=== PATIENT | female | born 1980 | race Caucasian/White ===

== ENCOUNTER 2016-06-10 17:48 | Emergency (ER) | payer BC ==
[~2016-06-10] VITALS: Ht 170.2 cm; Wt 82.0 kg
[~2016-06-10 17:48] MED LIST: MACROBID100 MG PO; REGLAN5 MG PO; ZOFRAN4 MG PO
[2016-06-10 18:28] LABS: HEMATOCRIT 42.6 % (36.0-46.0); MCH 38.1 PG (29.0-34.0); MCHC 36.4 G/DL (30.0-36.0); MCV 104.7 FL (83-99); MEAN PLAT.VOLUME 10.2 uM^3 (9.5-12.4); PLATELET COUNT 190 K/uL (156-360); RBC DIS.WIDTH-SD 53.7 % (39-53); RED BLOOD COUNT 4.07 M/uL (3.80-5.20); WHITE BLOOD COUNT 7.9 K/uL (4.1-10.2)
[2016-06-10 18:35] LABS: ADD MIUA? YES; BILIRUBIN NEGATIVE; BLOOD NEGATIVE; COLOR YELLOW ((YELLOW)); GLUCOSE (STRIP) NEGATIVE; KETONES 5; LEUKOCYTES NEGATIVE; NITRITE NEGATIVE; PROTEIN (STRIP) NEGATIVE; SPECIFIC GRAVITY 1.006 (1.000-1.030)
[2016-06-10 18:39] LABS: BACTERIA RARE /HPF; CALCIUM OXALATE CRYSTALS 3+ /HPF; EPITHELIAL CELLS RARE /HPF; MUCUS NONE SEEN /LPF; RED BLOOD CELLS 0-5 /HPF (0-5); UCUL ADDED? NO; WHITE BLOOD CELLS 0-5 /HPF (0-5)
[2016-06-10 18:42] LABS: CHLORIDE 87 mEq/L (99-109); POTASSIUM 2.6 mEq/L (3.7-5.4); SODIUM 136 mEq/L (136-147)
[2016-06-10 18:44] LABS: GLUCOSE 96 mg/dL (70-99)
[2016-06-10 18:45] LABS: ANION GAP 21 MEQ/L (2-14)
[2016-06-10 18:46] LABS: TOTAL BILIRUBIN 3.4 mg/dL (0.0-1.0)
[2016-06-10 18:48] LABS: ALKALINE PHOSPHATASE 87 IU/L (3-129); GFR ESTIMATE (CALCULATED) > 59 mL/min/
[2016-06-10 18:49] LABS: UREA NITROGEN (BUN) 13 mg/dL (9-23)
[2016-06-10 18:57] LABS: QUANTITATIVE HCG < 4.0 MIU/ML
[2016-06-10 20:21] LABS: SERUM ETHYL ALCOHOL < 10 mg/dL
[2016-06-10 20:37] LABS: LIPASE 324 U/L (1.0-51.0)
[2016-06-10] MEDS ORDERED: OXYCONTIN30 MG PO (21:44)
[2016-06-10] MEDS ORDERED: OMEPRAZOLE40 M1 PO (21:44)
[2016-06-10] MEDS ORDERED: OXYCODONE HCL10 MG PO (21:44)
[2016-06-10 23:09] LABS: AMPHETAMINE NEGATIVE (500 ng/mL); BARBITURATES NEGATIVE (200 ng/mL); BENZODIAZEPINES NEGATIVE (150 ng/mL); COCAINE NEGATIVE (150 ng/mL); INTERNAL CONTROLS VALID? YES; METHADONE NEGATIVE (200 ng/mL); METHAMPHETAMINE NEGATIVE (500 ng/mL); OPIATES (MORPHINE) NEGATIVE (100 ng/mL); OXYCODONE PRESUMPTIVE POSITIVE (100 ng/mL); PHENCYCLIDINE NEGATIVE (25 ng/mL); PROPOXYPHENE NEGATIVE (300 ng/mL); THC CANNABINOIDS NEGATIVE (50 ng/mL); TRICYCLIC ANTIDEPRESSANTS NEGATIVE (300 ng/mL)
[2016-06-11] MEDS ORDERED: ZOFRAN ODT4 MG PO (01:42)
[2016-06-11] MEDS ORDERED: MOUTH SORE15 ML MM (02:02)
[2016-06-11 02:27] VITALS: BP 126/79
[2016-06-11 11:37] LABS: HBSG INDEX 0.16
[2016-06-11 11:38] LABS: HPCA INDEX 14.19
[2016-06-11 11:39] LABS: ANTI-HEPATITIS A VIRUS (IGM) Nonreactive; ANTI-HEPATITIS B CORE (IGM) Nonreactive; HAV INDEX 0.07; HBC IgM INDEX 0.13
== END 2016-06-11 02:29 | disposition home or self-care (01) ==
LOC: EME 17:48
DX: E87.6 Hypokalemia (principal); R11.2 Nausea with vomiting, unspecified; F10.10 Alcohol abuse, uncomplicated; R79.89 Other specified abnormal findings of blood chemistry; F43.23 Adjustment disorder with mixed anxiety and depressed mood; K21.9 Gastro-esophageal reflux disease without esophagitis
CPT/HCPCS: 74177; 80053; 80074; 80306 90; 81003; 83690; 84702; 85027; 90839; 93005; 99281; 99285; G0480; J3360; J3480; J7030

== ENCOUNTER 2016-08-28 13:24 | Emergency (ER) | payer BC ==
[~2016-08-28] VITALS: Ht 170.2 cm; Wt 75.0 kg
[~2016-08-28 13:24] MED LIST changes: +MOUTH SORE15 ML MM; +OMEPRAZOLE40 M1 PO; +OXYCODONE HCL10 MG PO; +OXYCONTIN30 MG PO; +ZOFRAN ODT4 MG PO
[2016-08-28] MEDS ORDERED: ONDANSETRON HCL8 MG PO (13:55)
[2016-08-28] MEDS ORDERED: BUSPAR15 MG PO (13:56)
[2016-08-28 14:56] LABS: ADD MIUA? YES; BILIRUBIN NEGATIVE; BLOOD SMALL; GLUCOSE (STRIP) NEGATIVE; KETONES NEGATIVE; LEUKOCYTES LARGE; NITRITE NEGATIVE; PROTEIN (STRIP) 30
[2016-08-28 15:00] LABS: COLOR YELLOW ((YELLOW))
[2016-08-28 15:05] LABS: EOSINOPHIL (%) 0 % (0-5); HEMATOCRIT 44.1 % (36.0-46.0); IMMATURE GRANULOCYTE (%) 0.8 % (0.0-0.7); LYMPHOCYTE COUNT 1.5 K/uL (1.0-2.8); MCH 37.9 PG (29.0-34.0); MCHC 35.6 G/DL (30.0-36.0); MCV 106.5 FL (83-99); MEAN PLAT.VOLUME 9.1 uM^3 (9.5-12.4); MONOCYTE (%) 7.8 % (3-12); MONOCYTE COUNT 0.3 K/uL (0-0.8); NEUTROPHIL (%) 52.5 % (45-76); PLATELET COUNT 183 K/uL (156-360); RBC DIS.WIDTH-CV 14.4 % (11.8-14.6); RBC DIS.WIDTH-SD 56.5 % (39-53); RED BLOOD COUNT 4.14 M/uL (3.80-5.20); WHITE BLOOD COUNT 3.8 K/uL (4.1-10.2)
[2016-08-28 15:18] LABS: AMPHETAMINE NEGATIVE (500 ng/mL); BARBITURATES NEGATIVE (200 ng/mL); BENZODIAZEPINES NEGATIVE (150 ng/mL); COCAINE NEGATIVE (150 ng/mL); INTERNAL CONTROLS VALID? YES; METHADONE NEGATIVE (200 ng/mL); METHAMPHETAMINE NEGATIVE (500 ng/mL); OPIATES (MORPHINE) NEGATIVE (100 ng/mL); OXYCODONE PRESUMPTIVE POSITIVE (100 ng/mL); PHENCYCLIDINE NEGATIVE (25 ng/mL); PROPOXYPHENE NEGATIVE (300 ng/mL); THC CANNABINOIDS NEGATIVE (50 ng/mL); TRICYCLIC ANTIDEPRESSANTS NEGATIVE (300 ng/mL)
[2016-08-28 15:23] LABS: CHLORIDE 96 mEq/L (99-109); POTASSIUM 3.3 mEq/L (3.7-5.4); SODIUM 141 mEq/L (136-147)
[2016-08-28 15:24] LABS: GLUCOSE 104 mg/dL (70-99)
[2016-08-28 15:26] LABS: ANION GAP 17 MEQ/L (2-14)
[2016-08-28 15:28] LABS: GFR ESTIMATE (CALCULATED) > 59 mL/min/; SERUM ETHYL ALCOHOL 344 mg/dL
[2016-08-28 15:29] LABS: UREA NITROGEN (BUN) 6 mg/dL (9-23)
[2016-08-28 15:31] LABS: BACTERIA NONE SEEN /HPF; EPITHELIAL CELLS RARE /HPF; MUCUS 1+ /LPF
[2016-08-28 15:38] LABS: QUANTITATIVE HCG < 4.0 MIU/ML
[2016-08-29] MEDS ORDERED: LIBRIUM25 MG PO (02:04)
[2016-08-29 02:19] VITALS: BP 137/93
== END 2016-08-29 02:31 | disposition home or self-care (01) ==
LOC: EME 13:24
PROVIDERS: Emergency Medicine
DX: F10.129 Alcohol abuse with intoxication, unspecified (principal); Y90.8 Blood alcohol level of 240 mg/100 ml or more; F33.1 Major depressive disorder, recurrent, moderate; Z63.0 Problems in relationship with spouse or partner; K21.9 Gastro-esophageal reflux disease without esophagitis; F41.9 Anxiety disorder, unspecified; M54.9 Dorsalgia, unspecified; Z79.891 Long term (current) use of opiate analgesic
CPT/HCPCS: 80048; 81003; 84702; 85025; 90839; 99281; 99285; G0480; J2405; J3411; J3475

== ENCOUNTER 2017-06-23 09:36 | Emergency (ER) | payer BC ==
[~2017-06-23] VITALS: Ht 170.2 cm; Wt 70.9 kg
[~2017-06-23 09:36] MED LIST changes: +BUSPAR15 MG PO; +LIBRIUM25 MG PO; +ONDANSETRON HCL8 MG PO
[2017-06-23 10:00] LABS: HEMATOCRIT 47.9 % (36.0-46.0); HEMOGLOBIN 17.6 G/DL (11.9-15.5); MCH 33.7 PG (29.0-34.0); MCHC 36.7 G/DL (30.0-36.0); MCV 91.8 FL (83-99); PLATELET COUNT 289 K/uL (156-360); RBC DIS.WIDTH-CV 13.8 % (11.8-14.6); RBC DIS.WIDTH-SD 45.2 % (39-53); RED BLOOD COUNT 5.22 M/uL (3.80-5.20); WHITE BLOOD COUNT 11.2 K/uL (4.1-10.2)
[2017-06-23 10:08] LABS: ALBUMIN 4.8 g/dL (3.2-4.8); CHLORIDE 99 mEq/L (99-109); POTASSIUM 3.5 mEq/L (3.7-5.4); SODIUM 147 mEq/L (136-147)
[2017-06-23 10:11] LABS: GLUCOSE 125 mg/dL (70-99)
[2017-06-23 10:13] LABS: TOTAL BILIRUBIN 1.3 mg/dL (0.0-1.0)
[2017-06-23 10:14] LABS: ALKALINE PHOSPHATASE 120 IU/L (3-129); CREATININE 0.8 mg/dL (0.6-1.3); GFR ESTIMATE (CALCULATED) > 59 mL/min/
[2017-06-23 10:15] LABS: UREA NITROGEN (BUN) 7 mg/dL (9-23)
[2017-06-23 10:16] LABS: AST (GOT) 90 IU/L (2-34)
[2017-06-23 10:17] LABS: ALT (GPT) 95 IU/L (3-49)
[2017-06-23 10:25] LABS: QUANTITATIVE HCG < 4.0 MIU/ML
[2017-06-23 10:54] LABS: APPEARANCE SL.HAZY ((CLEAR)); BILIRUBIN NEGATIVE; BLOOD MODERATE; COLOR YELLOW ((YELLOW)); GLUCOSE (STRIP) NEGATIVE; KETONES 20; LEUKOCYTES NEGATIVE; NITRITE NEGATIVE; PROTEIN (STRIP) 100; SPECIFIC GRAVITY 1.014 (1.000-1.030); UROBILINOGEN 0.2 MG/DL (0.2-1.0)
[2017-06-23 11:02] LABS: BACTERIA RARE /HPF; EPITHELIAL CELLS 1+ /HPF; HYALINE CASTS 0-5 /LPF; MUCUS 2+ /LPF; RED BLOOD CELLS 0-5 /HPF (0-5); UCUL ADDED? NO; WHITE BLOOD CELLS 0-5 /HPF (0-5)
[2017-06-23 11:03] LABS: AMPHETAMINE NEGATIVE (500 ng/mL); BARBITURATES NEGATIVE (200 ng/mL); BENZODIAZEPINES NEGATIVE (150 ng/mL); COCAINE NEGATIVE (150 ng/mL); METHADONE NEGATIVE (200 ng/mL); METHAMPHETAMINE NEGATIVE (500 ng/mL); OPIATES (MORPHINE) NEGATIVE (100 ng/mL); PHENCYCLIDINE NEGATIVE (25 ng/mL); THC CANNABINOIDS NEGATIVE (50 ng/mL); TRICYCLIC ANTIDEPRESSANTS NEGATIVE (300 ng/mL)
[2017-06-23 11:04] LABS: BUPRENORPHINE NEGATIVE (10 ng/mL); OXYCODONE PRESUMPTIVE POSITIVE (100 ng/mL); PROPOXYPHENE NEGATIVE (300 ng/mL)
[2017-06-23 11:15] LABS: MAGNESIUM 2.3 mg/dL (1.3-2.7)
[2017-06-23 11:19] LABS: SERUM ETHYL ALCOHOL 352 mg/dL
[2017-06-23 11:22] LABS: LIPASE 7 U/L (1.0-51.0)
[2017-06-23 16:45] VITALS: BP 128/88
== END 2017-06-23 16:52 | disposition home or self-care (01) ==
LOC: EME 09:36
PROVIDERS: Emergency Medicine
DX: F11.23 Opioid dependence with withdrawal (principal); F10.10 Alcohol abuse, uncomplicated; G89.29 Other chronic pain; M54.9 Dorsalgia, unspecified; E87.0 Hyperosmolality and hypernatremia; E86.0 Dehydration; Z91.410 Personal history of adult physical and sexual abuse; K21.9 Gastro-esophageal reflux disease without esophagitis; Z97.5 Presence of (intrauterine) contraceptive device; Z79.891 Long term (current) use of opiate analgesic
CPT/HCPCS: 80053; 81003; 83690; 83735; 84702; 85027; 99281; 99284; G0480; J2270; J2405